=== PATIENT | female | born 1965 | race Caucasian/White ===

== ENCOUNTER 2019-08-29 07:39 | Outpatient (CLI) | payer OTHER ==
[~2019-08-29 07:39] MED LIST: FLEXERIL5 MG; NEURONTIN800 MG; PERCOCET 10-3251 TAB; RELAFEN500 MG; SYNTHROID112 MCG
== END 2019-08-29 16:02 | disposition home or self-care (01) ==
LOC: LAB 07:39
DX: D64.89 Other specified anemias (principal); M06.049 Rheumatoid arthritis without rheumatoid factor, unspecified hand; M54.5 Low back pain; M25.572 Pain in left ankle and joints of left foot; M25.571 Pain in right ankle and joints of right foot